=== PATIENT | female | born 1970 | race Caucasian/White ===

== ENCOUNTER 2018-09-28 05:57 | Inpatient (IN) | payer OTHER ==
[2018-09-28] VITALS (23 sets, daily range): BP systolic 83–141; BP diastolic 52–101
[~2018-09-28] VITALS: Ht 162.6 cm; Wt 44.9 kg
[~2018-09-28 05:57] MED LIST: AMBIEN 5 MG TABL5 M1 PO; TRAMADOL 50 MG50 MG PO; XANAX1 MG PO
[2018-09-28 06:14] LABS: URINE BILIRUBIN NEGATIVE (Negative); URINE BLOOD NEGATIVE (Negative); URINE CLARITY CLEAR; URINE COLOR YELLOW; URINE GLUCOSE-RANDOM NEGATIVE (Negative); URINE KETONES NEGATIVE (Negative); URINE LEUKOCYTES NEGATIVE (Negative); URINE NITRITE NEGATIVE (Negative); URINE PROTEIN NEGATIVE (Negative); URINE SPECIFIC GRAVITY >= 1.030 (1.005-1.030); URINE UROBILINOGEN 0.2 E.U./dl (0.2-1.0)
[2018-09-28 06:22] LABS: AMP/METHAMP Negative (Negative); BARBITURATES Negative (Negative); BENZODIAZEPINES POSITIVE (Negative); COCAINE Negative (Negative); METHADONE Negative (Negative); OPIATES Negative (Negative); PCP Negative (Negative); THC Negative (Negative)
[2018-09-28 06:36] LABS: HEMATOCRIT 39.3 % (37.0-47.0); HEMOGLOBIN 13.6 gm/dL (12.0-15.0); MCHC 34.6 g/dL (28.0-37.0); MCV 98.3 fL (80.0-100.0); MPV 8.5 fl. (7.2-11.1); RDW-CV 13.6 % (10.5-14.5); WBC 6.3 thou/uL (4.0-11.0)
[2018-09-28 06:44] LABS: CREATININE 0.9 mg/dL (0.6-1.3); POTASSIUM 3.4 mmol/L (3.5-5.1)
[2018-09-28 06:48] LABS: ALBUMIN 4.1 g/dL (3.4-5.0); TOTAL BILIRUBIN 1.4 mg/dL (<0.1-1.0); TOTAL PROTEIN 7.4 g/dL (6.4-8.2)
[2018-09-28 06:54] LABS: ALCOHOL 32 mg/dL (<10); SALICYLATE < 2.8 mg/dL (2.8-20.0)
[2018-09-28 06:55] LABS: ACETAMINOPHEN < 2 ug/mL (10-30)
[2018-09-28 09:52] LABS: BE -4.5 mmol/L (-2 to +3); HCO3 20.3 mmol/L (22.0-26.0); PCO2 36.8 mmHg (35.0-45.0)
[2018-09-28 09:53] LABS: PO2 340.1 mmHg (75.0-100.0)
--- NOTE | 2018-09-28 11:15 | NUR ---
PATIENT ARRIVED TO ICU AT 0800 ON VENTILATOR. PATIENT IN RESTRAINTS FOR SAFTEY. VERSED GTT RUNNING. PATIENT UNABLE TO COMPLETE FULL HISTORY DUE TO BEING UNABLE TO SPEAK. PROVIDED SOME INFO AND WROTE AN AFFADAVIT THAT IS ON THE CHART, VERY DETAILED. PATIENT HAS A HISTORY OF PREVIOUS SI ATTEMPTS. ROOM STRIPPED, ONCE PATIENT IS EXTUBATED (POSSIBLY TOMORROW) A SITTER WILL BE AT BEDSIDE AND PSYCH CONSULT WILL BE OBTAINED PER DR GARCIA. BED IN LOWEST POSITION, CARDIAC MONTIOR IN PLACE, FALL PRECAUTIONS IN PLACE.
--- NOTE | 2018-09-28 11:57 | CON ---
[address] [address] CONSULTATION Name: EDILIA LEO Room: [address] IN .R.#: [id number] Admission: 09/28/18 Attend Phys: Clemente Hurt MD Discharge: Date of : 70 Report #: [id number] THIS REPORT FOR: //name// CC: Clemente Hurt [facility] physician/PCP REASON FOR CONSULTATION: Respiratory failure. HISTORY OF PRESENT ILLNESS: The patient was intubated on sedation during my visit, did not participate in the history. I reviewed medical records and discussed with the ER staff. This is a 48-year-old female patient who was admitted through the Emergency Room after she presented with intentional drug overdose. Apparently 30 minutes prior to arrival to the ER, she called EMS admitting that she took alprazolam, Valium and Toradol, estimated to be around 30 tablets of different medications. Initially, she was awake. She did try Narcan without significant change in her status. Her blood pressure was stable, and her O2 saturation was 98% on room air. However, slowly her mental status deteriorated, and she had to be intubated in the ER. When I saw her, she was on assist control ventilation. She was on sedation with both Versed 6 mg per hour and propofol. The RN reporting sedation is lightened. She would wake up and move, but did not respond to commands. Apparently, this is not the first time she attempted overdose, she did that in the past at least 2 times. PAST MEDICAL HISTORY: Per the records 1. Prior attempt back in 2017 with a drug overdose. 2. Depression. PAST SURGICAL HISTORY: Unobtainable. SOCIAL HISTORY: Unobtainable due to the patient's condition. FAMILY HISTORY: Not obtainable. HOME MEDICATIONS: Per the record, she is on Xanax, Ambien, Ultram at home, although they were not verified at this point due to the patient's condition. REVIEW OF SYSTEMS: Unobtainable due to the patient's condition. PHYSICAL EXAMINATION: VITAL SIGNS: Intubated and sedated on the vent with 70% FiO2, blood pressure 140/100, pulse rate of 62, temperature 35.9, breathing with the vent between 12 and 15 times a minute and O2 saturation on the monitor 100%. GENERAL: Thin lady, sedated on the vent, tolerating the vent well. HEAD: Normocephalic, atraumatic. EYES: Pupils [place] [address] CONSULTATION Name: EDILIA LEO Room: [address]#: [id number] Admission: 09/28/18 Attend Phys: Clemente Hurt MD Discharge: Date of : 70 Report #: [id number] ENT: External ear looks okay and normal. No jaundice, not pale. Oral cavity: Moist mucous membrane with ET tube in place. NECK: Supple. No palpable lymph node. No palpable thyroid. Trachea is central. CHEST: Air movement bilaterally. No wheezes, no crackles. Symmetrical expansion, nontender. HEART: S1, S2, no murmur. ABDOMEN: Benign, soft, lax, nontender, positive bowel sounds. No masses felt. EXTREMITIES: Lower extremity, no edema. Moving 4 extremities spontaneously. No focal weakness. Cranial nerves grossly normal. PSYCHIATRIC: Mood and affect, unable to evaluate. NEUROLOGIC: Sedated at this point. LYMPHATICS: No palpable lymph node. SKIN: No rash. LABORATORY DATA: She had multiple chest x-rays, the last chest x-ray did not show acute infiltrate and good position of the ET tube. Her white blood count 6.3, hemoglobin of 13.6 and platelets of 232. Her creatinine is 0.6, potassium 3.4, sodium 138. Urine drug screen is positive for benzos and serum alcohol level 32. IMPRESSION: 1. Acute respiratory failure. 2. Mental status change. 3. Drug overdose on Ultram and benzodiazepine. 4. Suicidal attempt. 5. History of suicidal attempt in the past. At this point, we will continue the patient on the current sedation. Continue scheduled nebulization treatment. She is on GI prophylaxis. Continue the current measures. We will do ABGs today and will titrate her oxygen down as tolerated. We may consider adjusting the vent depending on the results of ABGs. Hopefully, in 24 hours, we will change the sedation down and based on her mental status, we will consider weaning trial. She will need psychiatric evaluation post-extubation. Discussed with RN. Thank you for the consult. <ELECTRONICALLY SIGNED> By: Ben Woods MD 09/28/18 1157 [id number] Woods MD /nt
--- NOTE | 2018-09-28 15:44 | EKG ---
[place] [address] ELECTROCARDIOGRAM REPORT Name: EDILIA LEO Room: [address] ADM IN [facility]#: [id number] Admission: 09/28/18 Attend Phys: Clemente Hurt MD Discharge: Date of : 70 Report #: [id number] THIS REPORT FOR: //name// [facility] ED Test Date: 2018-09-28 Test Time: 06:05:33 Pat Name: EDILIA LEO Department: Room: [facility] Gender: F Tv Production Assistant: AP : 1970 Requested By: Gin Aponte Order Number: [id number] MD: Anibal Norman Measurements Intervals [place] Rate: 50 P: 77 NV: 181 QRS: 82 QRSD: 78 T: 78 QT: 468 QTc: 427 Interpretive Statements Sinus bradycardia Probable septal infarct, old Compared to ECG 02/15/2017 03:26:37 No significant changes Electronically Signed On 09-28-2018 15:43:48 [employer] SYSTEM[employer] ENGINEER by Anibal Norman [email or web address] <ELECTRONICALLY SIGNED> By: Anibal Norman MD, [facility] 09/28/18 1543 06 4 Anibal Norman MD, [facility] /EPI
--- NOTE | 2018-09-28 17:37 | NUR ---
SPOKE WITH PATIENTS AND DAUGHTER EARLIER. DAUGHTER DOESN'T WANT PATIENT TO KNOW SHE WAS HERE AT ALL. EXPLAINED TO THIS NURSE THAT OCT 2016 PATIENTS MOTHER OF CIRRHOSIS OF THE LIVER. STATED THAT PATIENT HAD SOME SLIGHT PARANOIA BEFORE MOTHERS PASSING BUT NOTHING THAT CONSUMED HER LIFE. THE YEAR FOLLOWING THE OF HER MOTHER THE PATIENT DID HAVE INCREASED PARANOIA AND TRIED TO COMMIT SUICIDE. 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 PATIENT WAS ON RISPERDOL THAT HELPED THE PATIENT FOR A YEAR BUT DECIDED THAT SHE COULD NOT TAKE IT ANYMORE BECAUSE IT HAD TOO MANY NEGATIVE SIDE EFFECTS. PATIENT DID NOT SPEAK TO HER PSYCHIATRIST ABOUT STOPPING HER MEDICATION BUT TOLD HER IF SHE FELT SUICIDAL OR HER PARANOIA WORSEND THAT SHE WOULD TELL HIM. PATIENT HAS DISTANCED HERSELF FROM HER DAUGHTERS BECAUSE THE VOICES ARE SAYING SHE IS HARMING THEM BY BEING AROUND THEM. SHE HASNT SEEN HER DAUGHTER AND GRANDSON SINCE 2017. AND DAUGHTER SAY PATIENT CAN BE MANIPULATIVE AT TIMES WELL. STATED PATIENT HAD MADE IT FROM Oct TO 2017 WITHOUT MEDICATIONS BUT SINCE HE HAS NOTICED THAT SHE HAS HAD A LOT OF TRIGGERING EVENTS THAT LED TO TODAYS SUICIDAL ATTEMPT. SHE HAS A SISTER BUT IS NOT VERY CLOSE WITH HER. PATIENT HAS HAD 2 OTHER SUICIDE ATTMEPTS PRIOR TO TODAYS EVENT.
[2018-09-29] VITALS (18 sets, daily range): BP systolic 81–132; BP diastolic 52–80
[2018-09-29 05:08] LABS: ABSOLUTE EOSINOPHILS 0.1 thou/uL (0.0-0.7); ABSOLUTE LYMPHOCYTES 1.8 thou/uL (0.8-5.3); ABSOLUTE MONOCYTES 0.7 thou/uL (0.0-1.2); ABSOLUTE NEUTROPHILS 4.1 thou/uL (1.6-8.1); BASOPHILS 0.4 %; EOSINOPHILS 1.6 %; HEMATOCRIT 38.7 % (37.0-47.0); HEMOGLOBIN 13.4 gm/dL (12.0-15.0); LYMPHOCYTES 26.5 %; MCH 34.7 pg (26.0-34.0); MCHC 34.7 g/dL (28.0-37.0); MCV 99.9 fL (80.0-100.0); MONOCYTES 10.1 %; MPV 8.5 fl. (7.2-11.1); NUCLEATED RBCS 0 /100WBC; PLATELET COUNT* 186 thou/uL (150-400); POLYS 61.4 %; RBC 3.87 mil/uL (4.20-5.00); RDW-CV 13.7 % (10.5-14.5); WBC 6.7 thou/uL (4.0-11.0)
[2018-09-29 05:47] LABS: CALCIUM 8.7 mg/dL (8.5-10.1); CREATININE 0.8 mg/dL (0.6-1.3); POTASSIUM 3.5 mmol/L (3.5-5.1)
--- NOTE | 2018-09-29 06:09 | NUR ---
REPORT RECEIVED FROM OFF GOING SHIFT, AND CARE ASSUMMED. PT REMAINS ON VENTILATOR SETTINGS AC 12, TV 500, PEEP5 AND FIO2 30%. ETT 7.0 22@LIP. NGT L NARES 70CM CONNECTED TO LIS. AVILEZ INTACT AND PATENT DRAINING YELLOW URINE TO BESIDE BAG. VSS, PT HAS AROUSED SEVERAL TIMES DURING SHIFT AND ATTEMPTED TO PULL ETT OUT. SEDATION ADJUSTED. NO ACUTE CHANGES DURING SHIFT MONITORS INTACT WITH ALARMS SET. WILL CONTINUE TO MONITOR. ACCU CHECK 56 THIS AM, DR CHOWDHURY NOTIFIED A HYPOGYLCEMIC PROTOCOL ORDERED AND 1 AMP D50 GIVEN.
--- NOTE | 2018-09-29 08:50 | NUR ---
PATIENT IS AWAKE AND FOLLOWING COMMANDS AT THIS TIME ON VENTILATOR WITH NO SEDATION. WEANING TRIAL TO START AT THIS TIME.
[2018-09-29 10:05] LABS: BE 0.4 mmol/L (-2 to +3); HCO3 25.6 mmol/L (22.0-26.0); PCO2 43.1 mmHg (35.0-45.0); pH 7.391 (7.340-7.450)
[2018-09-29 10:06] LABS: PO2 130.4 mmHg (75.0-100.0)
--- NOTE | 2018-09-29 10:53 | NUR ---
PATIENT EXTUBATED AT 1018 BY RT. TOLERATED TRIAL WELL. WAS UPDATED ON EXTUBATION AND THAT PATIENT IS DOING WELL. PATIENT ADMITTED TO THIS NURSE THAT SHE TOOK PILLS TO HARM HERSELF. SHE FEELS SHE IS PUTTING HER KIDS AT RISK BY BEING ALIVE. SITTER AT BEDSIDE AT THIS TIME. ROOM STRIPPED.
--- NOTE | 2018-09-29 11:41 | NUR ---
PATIENT TRIED TO PULL OUT HER IV AND FLUIDS. PATIENT IS BEING VERY UNCOOPERATIVE AND DIFFICULT AT THIS TIME. DR NOTIFIED. TELEPSYCH CONSULT TO BE DONE SOON.
--- NOTE | 2018-09-29 13:00 | NUR ---
PT EXTUBATED EARLIER, NOW 1:1 FOR SI AFTER INTENTIONAL DRUG OVERDOSE. THREE AFFADAVITS ON THE CHART. PT INITIALLY UNCOOPERATIVE AFTER EXTUBATION. WILL ASSESS WHEN MORE AWAKE AND ALERT.
--- NOTE | 2018-09-29 18:27 | NUR ---
PATIENT SOMEWHAT PROGRESSING WELL TOWARDS GOALS. SHE IS BEING MORE COOPERATIVE AT THIS TIME. SITTER AT BEDSIDE FOR SAFTEY. AND DAUGHTERS AT BEDSIDE VISTIING. PATIENT STILL BELIEVIES THAT WITH HER ALIVE THAT HER DAUGHTERS ARE IN DANGER. REASSURED PATIENT THAT HER LIVING IS NOT A THREAT TO HER DAUGHTERS LIFE. PATIENT AND FAMILY AWARE OF PLAN OF CARE. DR JOSE TUCKER WITH PATIENT GOING TO INPATIENT PSYCH TOMORROW. AFFADAVITS ON CHART. KLONOPIN SCHEDULED PER PSYCHIATRIST. PRN LORAZEPAM ON NOV WELL. PSYCHIATRIST WOULD LIKE RISPERDONE RESTARTED AT BEDTIME. BED IN LOWEST POSITION, CALL LIGHT IN REACH. BIOSTATISTICS PROFESSOR IN PLACE. PATIENT REFUSES FLUIDS AND ANTIBITOICS AT THIS TIME. NICOTINE PATCH APPLIED THIS SHIFT WELL.
[2018-09-30] VITALS (7 sets, daily range): BP systolic 95–112; BP diastolic 60–73
[2018-09-30 04:53] LABS: ABSOLUTE EOSINOPHILS 0.1 thou/uL (0.0-0.7); ABSOLUTE LYMPHOCYTES 1.5 thou/uL (0.8-5.3); ABSOLUTE MONOCYTES 0.4 thou/uL (0.0-1.2); ABSOLUTE NEUTROPHILS 3.4 thou/uL (1.6-8.1); BASOPHILS 0.8 %; EOSINOPHILS 2.5 %; HEMATOCRIT 35.9 % (37.0-47.0); HEMOGLOBIN 12.4 gm/dL (12.0-15.0); LYMPHOCYTES 26.8 %; MCHC 34.5 g/dL (28.0-37.0); MCV 98.3 fL (80.0-100.0); MONOCYTES 8.2 %; MPV 8.4 fl. (7.2-11.1); NUCLEATED RBCS 0 /100WBC; PLATELET COUNT* 208 thou/uL (150-400); POLYS 61.7 %; RBC 3.65 mil/uL (4.20-5.00); RDW-CV 13.1 % (10.5-14.5); WBC 5.4 thou/uL (4.0-11.0)
[2018-09-30 05:05] LABS: ALBUMIN 3.4 g/dL (3.4-5.0); CALCIUM 8.6 mg/dL (8.5-10.1); CREATININE 0.7 mg/dL (0.6-1.3); POTASSIUM 3.8 mmol/L (3.5-5.1); TOTAL BILIRUBIN 1.5 mg/dL (<0.1-1.0); TOTAL PROTEIN 6.6 g/dL (6.4-8.2)
--- NOTE | 2018-09-30 06:37 | NUR ---
REPORT RECEIVED FROM OFF GOING SHIFT AND CARE ASSUMMED. MONITORS INTACT WITH ALARMS SET. SITTER AT BEDSIDE. RESP REG AND UNLAOBRED SKIN W/D NO ACUTE DISTRESS NOTED. PT IS VERY TEARUL, STATED SHE WAS HEARING VOICES, HAVING BAD NIGHTMARES, AND SEES THINGS. PT IS CONFUSED, WILL REPEATEDLY REPEAT THE SAME STATEMENT OVER AND OVER. PT IS AWARE THAT SHE IS HEARING VOICES, BUT SHE BELEIVES THE VOICES ARE TRUE. SHE STATED THAT THE VOICES TELL HER SHE NEEDS TO BE GONE AND THAT SHE IS A BAD PERSON. PT STATED SHE IS AFRAID THAT SHE WILL BE HURT AT THE PSYCH FACILITY. ATTEMPTED TO REASSURE THE PATIENT. SITTER REMAINS AT BESIDE. PT HAS REFUSED HER ANTIBIOTICS AND HE RRESPIRADOL THIS SHIFT. SHE STATES THAT SHE IS VERY ANXIOUS.SHE WILL TAKE THE ATIVAN. VSS AN NO ACUTE CHANGES DURING THE SHIFT WILL CONITNUE TO MONITOR
--- NOTE | 2018-09-30 12:03 | NUR ---
LICENSED REACTOR OPERATOR ATTEMPTING TO FIND INPATIENT PSYCH PLACEMENT FOR THE PATIENT. D/C CLASSROOM MONITOR SPOKE TO [facility]EARCH PSYCH-NO ANSWER. SHANTA WITH [facility]-'NO BEDS AVAILABLE, BUT WILL RETURN CALL IF A BED BECOMES AVAILABLE LATER ON TODAY'. RUBI MONREAL, ACCEPTED REFERRAL, BUT 'NO BEDS AVAILABLE AT THIS TIME'. [facility]-'WILL REVIEW REFERRAL AND RETURN CALL'. CM WILL CONTINUE TO ATTEMPT TO FIND INPATIENT PSYCH PLACEMENT AND AWAIT RETUN CALL FROM [facility]. CM WILL REMAIN AVIALABLE TO ASSIST AND FOLLOW NEEDED.
--- NOTE | 2018-09-30 17:17 | NUR ---
CABLE TELEVISION TECHNICIAN RECEIVED A RETURN CALL FROM [facility] WITH [facility] AND SHE INFORMS THAT THE FACILITY IS ABLE TO ACCEPT THE PATIENT. ACCEPTING PHYSICIAN: DR TESS IRIZARRY, RN TO CALL REPOR TO: JONATHON, PATIENT ROOM: [address] [place] [address]. D/C ASSISTANT PROJECT MANAGER SPOKE TO [facility] TO INFORM OF THE NEED TO PROVIDE TRANSPORT, AND FAXED THE PATIENT TRANSFER FORM. [facility]SP[facility] PATIENT. RN IN FORMED OF ALL OF THE ABOVE INFO, AND SHE IS IN AGREEMENT. CM WILL REMAIN AVAILABLE TO ASSIST AND FOLLOW NEEDED.
--- NOTE | 2018-09-30 17:47 | NUR ---
PT TRANSFERRED TO [facility] VIA EMS, EMILIANA CALLED TO UPDATE STATUS AND TRANSFER, REPORT GIVEN TO DISHA HOLT, PT ANXIOUS BUT ALERT AND ORIENTED X4, VITAL SIGNS STABLE SEE DISCHARGE PAPERWORK.
== END 2018-09-30 17:38 | disposition short-term general hospital (02) | DRG 917 ==
LOC: M.ERS 05:57 → M.ICU 07:02 → M.TBA-ER 07:02 → M.ICU 07:59
PROVIDERS: Internal Medicine; Personal Emergency Response Attendant; ADMIT Internal Medicine
PROC: 0BH17EZ Insertion of Endotracheal Airway into Trachea, Via Natural or Artificial Opening (ICD-10-PCS; principal; 2018-09-28)
PROC: 5A1945Z Respiratory Ventilation, 24-96 Consecutive Hours (ICD-10-PCS; principal; 2018-09-28)
DX: T42.4X2A Poisoning by benzodiazepines, intentional self-harm, initial encounter (principal); J96.00 Acute respiratory failure, unspecified whether with hypoxia or hypercapnia; J69.0 Pneumonitis due to inhalation of food and vomit; G93.40 Encephalopathy, unspecified; T40.4X2A Poisoning by other synthetic narcotics, intentional self-harm, initial encounter; F32.9 Major depressive disorder, single episode, unspecified; T39.8X2A Poisoning by other nonopioid analgesics and antipyretics, not elsewhere classified, intentional self-harm, initial encounter; Y92.89 Other specified places as the place of occurrence of the external cause; Z79.899 Other long term (current) drug therapy; Z28.21 Immunization not carried out because of patient refusal